=== PATIENT | male | born 1955 | race Hispanic/Latino ===

== ENCOUNTER 2017-05-17 13:22 | Inpatient (IN) | payer OTHER ==
[~2017-05-17] VITALS: Ht 172.7 cm; Wt 83.3 kg
[2017-05-17 14:11] LABS: HEMATOCRIT 32.4 % (38.0-50.0); HEMOGLOBIN 10.5 G/DL (12.5-16.6); MCH 28.6 PG (29.0-34.0); MCHC 32.4 G/DL (30.0-36.0); MCV 88.3 FL (86-99); PLATELET COUNT 322 K/uL (156-360); RED BLOOD COUNT 3.67 M/uL (4.00-5.50); WHITE BLOOD COUNT 9.3 K/uL (4.1-10.2)
[2017-05-17 14:29] LABS: CHLORIDE 107 mEq/L (99-109); SODIUM 140 mEq/L (136-147)
[2017-05-17 14:31] LABS: GLUCOSE 205 mg/dL (70-99)
[2017-05-17 14:35] LABS: CREATININE 8.5 mg/dL (0.6-1.3); GFR ESTIMATE (CALCULATED) 7 mL/min/ (58.99-99999)
[2017-05-17 14:36] LABS: UREA NITROGEN (BUN) 78 mg/dL (9-23)
[2017-05-17 15:46] LABS: TROP-I INTERPRETATION NEGATIVE; TROPONIN-I 0.05 ng/mL (0.0-0.30)
[2017-05-17] MEDS ORDERED: TRESIBA FL200 UNIT/1 SC ×2 (16:01→16:02)
[2017-05-17] MEDS ORDERED: CALCIUM CARBON260 MG PO (16:02)
[2017-05-17] MEDS ORDERED: ACCUPRIL20 MG PO (16:03)
[2017-05-17] MEDS ORDERED: APRESOLINE100 MG PO (16:03)
[2017-05-17] MEDS ORDERED: VITAMIN D31000 UNIT PO (16:03)
[2017-05-17] MEDS ORDERED: LYRICA300 MG PO (16:03)
[2017-05-17] MEDS ORDERED: CALCITRIOL0.25 MCG PO (16:03)
[2017-05-17] MEDS ORDERED: COLCRYS0.6 MG PO (16:04)
[2017-05-17] MEDS ORDERED: LASIX40 MG PO (16:04)
[2017-05-17] MEDS ORDERED: CATAPRES0.1 MG PO (16:04)
[2017-05-17] MEDS ORDERED: TRAMADOL HCL300 MG PO (16:04)
[2017-05-17] MEDS ORDERED: AMLODIPINE BESYL5 MG PO (16:04)
[2017-05-17] MEDS ORDERED: NABI650T PO (16:04)
[2017-05-17] MEDS ORDERED: NOVOLOG PE100 UNITS/ SC (16:05)
[2017-05-17 18:58] LABS: ALBUMIN 3.2 g/dL (3.2-4.8)
[2017-05-17 19:00] VITALS: BP 189/94
[2017-05-17 19:01] LABS: TOTAL PROTEIN 7.7 g/dL (6.4-8.3)
[2017-05-17 19:02] LABS: TOTAL BILIRUBIN 0.2 mg/dL (0.0-1.0)
[2017-05-17 19:04] LABS: ALKALINE PHOSPHATASE 91 IU/L (3-129)
[2017-05-17 19:06] LABS: AST (GOT) 15 IU/L (2-34); DIRECT BILIRUBIN 0.2 mg/dL (0.0-0.3)
[2017-05-17 19:07] LABS: ALT (GPT) 6 IU/L (3-49)
[2017-05-17 19:53] LABS: TROP-I INTERPRETATION NEGATIVE; TROPONIN-I 0.04 ng/mL (0.0-0.30)
[2017-05-17 23:47] VITALS: BP 144/85
[2017-05-18 01:10] LABS: TROP-I INTERPRETATION NEGATIVE; TROPONIN-I 0.04 ng/mL (0.0-0.30)
[2017-05-18 07:16] LABS: BASOPHIL (%) 0.4 % (0-1); EOSINOPHIL COUNT 0.2 K/uL (0-0.3); HEMATOCRIT 28.1 % (38.0-50.0); HEMOGLOBIN 8.9 G/DL (12.5-16.6); IMMATURE GRANULOCYTE (%) 0.6 % (0.0-0.7); LYMPHOCYTE (%) 14.2 % (15-42); LYMPHOCYTE COUNT 1.2 K/uL (1.0-2.8); MCH 28.1 PG (29.0-34.0); MCHC 31.7 G/DL (30.0-36.0); MCV 88.6 FL (86-99); MONOCYTE (%) 9.4 % (3-12); MONOCYTE COUNT 0.8 K/uL (0-0.8); NEUTROPHIL (%) 73.4 % (45-76); PLATELET COUNT 276 K/uL (156-360); RBC DIS.WIDTH-CV 12.2 % (11.8-14.6); RBC DIS.WIDTH-SD 39.2 % (39-53); RED BLOOD COUNT 3.17 M/uL (4.00-5.50); WHITE BLOOD COUNT 8.1 K/uL (4.1-10.2)
[2017-05-18 07:23] LABS: INTER. NORMALIZED RATIO 1.2
[2017-05-18 07:26] LABS: PTT 33.8 SEC (25-37)
[2017-05-18 07:36] LABS: TROP-I INTERPRETATION NEGATIVE; TROPONIN-I 0.04 ng/mL (0.0-0.30)
[2017-05-18 07:58] VITALS: BP 178/85
[2017-05-18 07:58] LABS: ALBUMIN 2.4 G/DL (3.2-4.8); ALKALINE PHOSPHATASE 61 IU/L (3-129); ALT (GPT) 4 IU/L (3-49); AST (GOT) 10 IU/L (2-34); CHLORIDE 110 MEQ/L (99-109); GFR ESTIMATE (CALCULATED) 7 mL/min/ (58.99-99999); POTASSIUM 4.4 MEQ/L (3.7-5.4); SODIUM 143 MEQ/L (136-147); TOTAL BILIRUBIN 0.2 MG/DL (0.0-1.0); TOTAL PROTEIN 5.8 G/DL (6.4-8.3); UREA NITROGEN (BUN) 73 mg/dL (9-23)
[2017-05-18 07:59] LABS: GLUCOSE 70 mg/dL (70-99)
[2017-05-18 10:58] LABS: HEMOGLOBIN A1c (GLYCOHEMOGLOB) 7.2 % (Below 5.7)
[2017-05-18 13:59] LABS: HEPATITIS B SURFACE ANTIGEN Nonreactive
[2017-05-18 14:00] LABS: HEPATITIS C ANTIBODY Nonreactive
[2017-05-18 14:01] LABS: ANTI-HEPATITIS A VIRUS (IGM) Nonreactive
[2017-05-18 15:04] LABS: ANTI-HEPATITIS B CORE (IGM) Nonreactive
[2017-05-18 17:26] VITALS: BP 166/89
[2017-05-18 17:38] VITALS: BP 141/80
[2017-05-18 19:31] VITALS: BP 159/76
[2017-05-18 23:04] LABS: APPEARANCE CLEAR ((CLEAR)); BILIRUBIN NEGATIVE; BLOOD NEGATIVE; COLOR YELLOW ((YELLOW)); GLUCOSE (STRIP) >=500; KETONES NEGATIVE; LEUKOCYTES NEGATIVE; NITRITE NEGATIVE; PROTEIN (STRIP) >=500; SPECIFIC GRAVITY 1.015 (1.000-1.030); UROBILINOGEN 0.2 MG/DL (0.2-1.0)
[2017-05-18 23:07] LABS: BACTERIA RARE /HPF; EPITHELIAL CELLS RARE /HPF; MUCUS NONE SEEN /LPF; UCUL ADDED? NO; WHITE BLOOD CELLS 0-5 /HPF (0-5)
[2017-05-19 04:49] VITALS: BP 138/63
[2017-05-19 05:50] LABS: BASOPHIL (%) 0.5 % (0-1); EOSINOPHIL COUNT 0.2 K/uL (0-0.3); HEMATOCRIT 28.9 % (38.0-50.0); HEMOGLOBIN 9.4 G/DL (12.5-16.6); IMMATURE GRANULOCYTE (%) 0.7 % (0.0-0.7); LYMPHOCYTE (%) 20.6 % (15-42); LYMPHOCYTE COUNT 1.7 K/uL (1.0-2.8); MCH 28.6 PG (29.0-34.0); MCHC 32.5 G/DL (30.0-36.0); MCV 87.8 FL (86-99); MONOCYTE (%) 10.3 % (3-12); MONOCYTE COUNT 0.9 K/uL (0-0.8); NEUTROPHIL (%) 65.9 % (45-76); NEUTROPHIL COUNT 5.5 K/uL (1.8-6.4); PLATELET COUNT 304 K/uL (156-360); RBC DIS.WIDTH-CV 11.9 % (11.8-14.6); RBC DIS.WIDTH-SD 38.9 % (39-53); RED BLOOD COUNT 3.29 M/uL (4.00-5.50); WHITE BLOOD COUNT 8.3 K/uL (4.1-10.2)
[2017-05-19 06:22] LABS: ALBUMIN 2.8 G/DL (3.2-4.8); ALKALINE PHOSPHATASE 57 IU/L (3-129); ALT (GPT) 3 IU/L (3-49); AST (GOT) 10 IU/L (2-34); CHLORIDE 104 MEQ/L (99-109); CREATININE 5.8 MG/DL (0.6-1.3); GFR ESTIMATE (CALCULATED) 11 mL/min/ (58.99-99999); GLUCOSE 110 mg/dL (70-99); MAGNESIUM 1.4 mg/dl (1.3-2.7); PHOSPHORUS 4.2 mg/dL (2.5-4.9); POTASSIUM 3.8 MEQ/L (3.7-5.4); SODIUM 140 MEQ/L (136-147); TOTAL BILIRUBIN 0.2 MG/DL (0.0-1.0); TOTAL PROTEIN 6.7 G/DL (6.4-8.3); UREA NITROGEN (BUN) 45 mg/dL (9-23)
[2017-05-19 08:00] LABS: INTACT PARATHYROID HORMONE 259 pg/mL (10-69)
[2017-05-19 11:39] VITALS: BP 135/68
[2017-05-19 15:55] VITALS: BP 126/67
[2017-05-19 19:18] VITALS: BP 118/70
[2017-05-19 23:09] VITALS: BP 130/74
[2017-05-20 06:29] LABS: CHLORIDE 97 MEQ/L (99-109); GFR ESTIMATE (CALCULATED) 13 mL/min/ (58.99-99999); GLUCOSE 151 mg/dL (70-99); POTASSIUM 3.5 MEQ/L (3.7-5.4); SODIUM 136 MEQ/L (136-147); UREA NITROGEN (BUN) 30 mg/dL (9-23)
[2017-05-20 07:42] VITALS: BP 117/65
[2017-05-20 12:25] LABS: HEPATITIS B SURFACE ANTIBODY Nonreactive
[2017-05-20 15:10] VITALS: BP 131/63
[2017-05-20 15:15] VITALS: BP 136/80
[2017-05-21 00:09] VITALS: BP 139/72
[2017-05-21 07:55] LABS: BASOPHIL (%) 0.5 % (0-1); BASOPHIL COUNT 0.1 K/uL (0-0.1); EOSINOPHIL (%) 1.7 % (0-5); EOSINOPHIL COUNT 0.2 K/uL (0-0.3); HEMATOCRIT 29.7 % (38.0-50.0); HEMOGLOBIN 9.5 G/DL (12.5-16.6); IMMATURE GRANULOCYTE (%) 1.1 % (0.0-0.7); LYMPHOCYTE (%) 14.1 % (15-42); LYMPHOCYTE COUNT 1.6 K/uL (1.0-2.8); MCH 28.1 PG (29.0-34.0); MCV 87.9 FL (86-99); MONOCYTE (%) 8.2 % (3-12); MONOCYTE COUNT 0.9 K/uL (0-0.8); NEUTROPHIL (%) 74.4 % (45-76); NEUTROPHIL COUNT 8.2 K/uL (1.8-6.4); NRBC (%) 0.5 /100 WBC (0-0); PLATELET COUNT 293 K/uL (156-360); RBC DIS.WIDTH-SD 38.5 % (39-53); RED BLOOD COUNT 3.38 M/uL (4.00-5.50)
[2017-05-21 08:22] LABS: ALBUMIN 2.7 G/DL (3.2-4.8); CHLORIDE 98 MEQ/L (99-109); CREATININE 6.3 MG/DL (0.6-1.3); GLUCOSE 212 mg/dL (70-99); PHOSPHORUS 4.3 mg/dL (2.5-4.9); SODIUM 136 MEQ/L (136-147); UREA NITROGEN (BUN) 44 mg/dL (9-23)
[2017-05-21 08:23] LABS: GFR ESTIMATE (CALCULATED) 10 mL/min/ (58.99-99999); POTASSIUM 4.5 MEQ/L (3.7-5.4)
[2017-05-21 08:56] VITALS: BP 142/76
[2017-05-21] MEDS ORDERED: NABI650T PO (12:11)
== END 2017-05-21 13:38 | disposition home or self-care (01) | DRG 682 ==
LOC: EME 13:22 → EDOF 16:33 → 3EAST 16:33 → ENRESERV 16:34 → 3EAST 18:57
PROVIDERS: Family Medicine; Hospitalist; Internal Medicine Nephrology
DX: I12.0 Hypertensive chronic kidney disease with stage 5 chronic kidney disease or end stage renal disease (principal); E11.22 Type 2 diabetes mellitus with diabetic chronic kidney disease; N18.6 End stage renal disease; E78.5 Hyperlipidemia, unspecified; E83.51 Hypocalcemia; D63.1 Anemia in chronic kidney disease; E11.40 Type 2 diabetes mellitus with diabetic neuropathy, unspecified; E11.610 Type 2 diabetes mellitus with diabetic neuropathic arthropathy; E87.6 Hypokalemia; N25.81 Secondary hyperparathyroidism of renal origin; E83.39 Other disorders of phosphorus metabolism; R19.7 Diarrhea, unspecified; Z79.4 Long term (current) use of insulin; Z89.422 Acquired absence of other left toe(s); Z91.19 Patient's noncompliance with other medical treatment and regimen
CPT/HCPCS: 70450; 71046; 80048; 80053; 80069; 80074; 80076; 81003; 82306; 82948; 83036; 83735; 83970; 84100; 84484; 85025; 85027; 85610; 85730; 86706; 87493; 93005; 93971; 99202; 99281; 99285; C1750; C1894; J0690; J0881; J1200; J1644; J1815; J2250; J3010; S0020

== ENCOUNTER 2017-06-27 18:17 | Emergency (ER) | payer OTHER ==
[~2017-06-27] VITALS: Ht 175.3 cm; Wt 52.1 kg
[~2017-06-27 18:17] MED LIST: ACCUPRIL20 MG PO; AMLODIPINE BESYL5 MG PO; APRESOLINE100 MG PO; CALCITRIOL0.25 MCG PO; CALCIUM CARBON260 MG PO; CATAPRES0.1 MG PO; COLCRYS0.6 MG PO; LASIX40 MG PO; LYRICA300 MG PO; NABI650T PO; NOVOLOG PE100 UNITS/ SC; TRAMADOL HCL300 MG PO; TRESIBA FL200 UNIT/1 SC; VITAMIN D31000 UNIT PO
[2017-06-27 20:25] LABS: HEMATOCRIT 25.2 % (38.0-50.0); HEMOGLOBIN 8.1 G/DL (12.5-16.6); MCH 27.6 PG (29.0-34.0); MCHC 32.1 G/DL (30.0-36.0); MCV 85.7 FL (86-99); PLATELET COUNT 305 K/uL (156-360); RBC DIS.WIDTH-CV 15.3 % (11.8-14.6); RBC DIS.WIDTH-SD 47.2 % (39-53); RED BLOOD COUNT 2.94 M/uL (4.00-5.50); WHITE BLOOD COUNT 8.4 K/uL (4.1-10.2)
[2017-06-27 20:45] LABS: ALBUMIN 2.7 g/dL (3.2-4.8); CHLORIDE 100 mEq/L (99-109); SODIUM 136 mEq/L (136-147)
[2017-06-27 20:47] LABS: GLUCOSE 88 mg/dL (70-99); TOTAL PROTEIN 8.4 g/dL (6.4-8.3)
[2017-06-27 20:49] LABS: TOTAL BILIRUBIN 0.3 mg/dL (0.0-1.0)
[2017-06-27 20:51] LABS: ALKALINE PHOSPHATASE 80 IU/L (3-129)
[2017-06-27 20:52] LABS: AST (GOT) 15 IU/L (2-34); UREA NITROGEN (BUN) 38 mg/dL (9-23)
[2017-06-27 20:54] LABS: ALT (GPT) 3 IU/L (3-49)
[2017-06-27 21:16] LABS: CREATININE 5.5 mg/dL (0.6-1.3); GFR ESTIMATE (CALCULATED) 11 mL/min/ (58.99-99999); POTASSIUM 4.9 mEq/L (3.7-5.4)
[2017-06-27 21:35] VITALS: BP 202/100
[2017-06-29] MEDS ORDERED: NABI650T PO (15:56)
[2017-06-29] MEDS ORDERED: DOXYCYCLINE MO100 MG PO (16:00)
== END 2017-06-27 21:35 | disposition home or self-care (01) ==
LOC: EME 18:17
PROVIDERS: Physician Assistant
DX: E87.5 Hyperkalemia (principal); I12.9 Hypertensive chronic kidney disease with stage 1 through stage 4 chronic kidney disease, or unspecified chronic kidney disease; N18.9 Chronic kidney disease, unspecified; D64.9 Anemia, unspecified; Z99.2 Dependence on renal dialysis; E78.5 Hyperlipidemia, unspecified; Z89.422 Acquired absence of other left toe(s)
CPT/HCPCS: 80053; 81003; 85027; 93005; 99281; 99285

== ENCOUNTER 2017-07-04 08:48 | Day surgery (SDC) | payer OTHER ==
[~2017-07-04] VITALS: Ht 175.3 cm; Wt 81.2 kg
[~2017-07-04 08:48] MED LIST changes: +DOXYCYCLINE MO100 MG PO
[2017-07-04] MEDS ORDERED: DULOXETINE HCL20 MG PO (09:29)
[2017-07-04 09:35] VITALS: BP 135/78
[2017-07-04 09:50] LABS: HEMATOCRIT 35.1 % (38.0-50.0); HEMOGLOBIN 10.6 G/DL (12.5-16.6); MCV 89.1 FL (86-99)
[2017-07-04 13:18] LABS: BASOPHIL (%) 1.1 % (0-1); BASOPHIL COUNT 0.1 K/uL (0-0.1); EOSINOPHIL (%) 0.9 % (0-5); EOSINOPHIL COUNT 0.1 K/uL (0-0.3); HEMOGLOBIN 9.7 G/DL (12.5-16.6); IMMATURE GRANULOCYTE (%) 0.5 % (0.0-0.7); LYMPHOCYTE (%) 16.2 % (15-42); LYMPHOCYTE COUNT 1.3 K/uL (1.0-2.8); MCH 26.9 PG (29.0-34.0); MCHC 30.3 G/DL (30.0-36.0); MCV 88.9 FL (86-99); MONOCYTE (%) 6.9 % (3-12); MONOCYTE COUNT 0.6 K/uL (0-0.8); NEUTROPHIL (%) 74.4 % (45-76); PLATELET COUNT 345 K/uL (156-360); RBC DIS.WIDTH-CV 15.8 % (11.8-14.6); RBC DIS.WIDTH-SD 49.3 % (39-53); WHITE BLOOD COUNT 8.1 K/uL (4.1-10.2)
[2017-07-04 13:25] VITALS: BP 192/93
[2017-07-04 14:11] VITALS: BP 185/94
== END 2017-07-04 14:30 | disposition home or self-care (01) ==
LOC: SDC 08:48
PROVIDERS: Podiatrist Foot & Ankle Surgery
DX: M89.472 Other hypertrophic osteoarthropathy, left ankle and foot (principal); M14.672 Charcot's joint, left ankle and foot; M86.172 Other acute osteomyelitis, left ankle and foot; I45.10 Unspecified right bundle-branch block; I12.0 Hypertensive chronic kidney disease with stage 5 chronic kidney disease or end stage renal disease; E11.22 Type 2 diabetes mellitus with diabetic chronic kidney disease; N18.6 End stage renal disease; Z99.2 Dependence on renal dialysis; Z79.4 Long term (current) use of insulin
CPT/HCPCS: 73630; 82948; 84132; 85014; 85018; 85025; 85027; 86850; 86900; 86901; 87070; 87075; 87077; 87147; 87186; 87205; 87641; 88305; J0131; J0690; J1170; J2250; J3010; S0020

== ENCOUNTER 2017-08-01 11:17 | Day surgery (SDC) | payer OTHER ==
[~2017-08-01] VITALS: Ht 175.3 cm; Wt 81.6 kg
[~2017-08-01 11:17] MED LIST changes: +DULOXETINE HCL20 MG PO; +FERRIC CITRATE PO; +LYRICA100 MG PO; +TRICOR145 MG PO
[2017-08-01 12:03] VITALS: BP 167/93
[2017-08-01 12:06] LABS: HEMATOCRIT 41.3 % (38.0-50.0); MCH 27.8 PG (29.0-34.0); MCHC 30.8 G/DL (30.0-36.0); MCV 90.4 FL (86-99); PLATELET COUNT 252 K/uL (156-360); RBC DIS.WIDTH-CV 18.1 % (11.8-14.6); RBC DIS.WIDTH-SD 59.5 % (39-53); WHITE BLOOD COUNT 9.3 K/uL (4.1-10.2)
[2017-08-01 12:25] LABS: HEMOGLOBIN 12.7 G/DL (12.5-16.6); RED BLOOD COUNT 4.57 M/uL (4.00-5.50)
[2017-08-01 12:49] LABS: CHLORIDE 98 MEQ/L (99-109); CREATININE 6.6 MG/DL (0.6-1.3); GFR ESTIMATE (CALCULATED) 9 mL/min/ (58.99-99999); GLUCOSE 136 mg/dL (70-99); POTASSIUM 4.7 MEQ/L (3.7-5.4); SODIUM 139 MEQ/L (136-147); UREA NITROGEN (BUN) 39 mg/dL (9-23)
[2017-08-01 16:00] VITALS: BP 193/90
[2017-08-01 17:00] VITALS: BP 182/90
== END 2017-08-01 17:15 | disposition home or self-care (01) ==
LOC: SDC 11:17
PROVIDERS: Surgery
DX: I12.0 Hypertensive chronic kidney disease with stage 5 chronic kidney disease or end stage renal disease (principal); E11.22 Type 2 diabetes mellitus with diabetic chronic kidney disease; Z79.4 Long term (current) use of insulin; N18.6 End stage renal disease; Z99.2 Dependence on renal dialysis; J45.909 Unspecified asthma, uncomplicated; K21.9 Gastro-esophageal reflux disease without esophagitis
CPT/HCPCS: 80048; 82948; 85027; J0690; J1644; J2250; J2720; J3010

== ENCOUNTER 2017-09-19 08:02 | Day surgery (SDC) | payer OTHER ==
[2017-09-19] MEDS ORDERED: ERGOCALCIF50000 UNIT PO (08:18)
[2017-09-19] MEDS ORDERED: OZEMPIC0.25 MG/0. SC (08:20)
== END 2017-09-19 11:10 | disposition home or self-care (01) ==
LOC: CATH 08:02
PROVIDERS: Surgery
DX: T82.858A Stenosis of other vascular prosthetic devices, implants and grafts, initial encounter (principal); Y83.2 Surgical operation with anastomosis, bypass or graft as the cause of abnormal reaction of the patient, or of later complication, without mention of misadventure at the time of the procedure; N18.6 End stage renal disease; Z99.2 Dependence on renal dialysis; K21.9 Gastro-esophageal reflux disease without esophagitis; J45.909 Unspecified asthma, uncomplicated
CPT/HCPCS: 82948; 87641; C1725; C1769; C1894; J1644; J2250; J3010